=== PATIENT | female | born 1970 | race Caucasian/White ===

== ENCOUNTER → 2023-04-07 07:17 | Outpatient (CLI) | payer OTHER, SELFPAY ==
--- NOTE | 2023-04-07 | DI.MG.S_ITS ---
BILATERAL DIGITAL SCREENING MAMMOGRAM 3D/2D WITH CAD: 04/07/2023 CLINICAL: Routine screening. Comparison is made to exams dated: 02/25/2022 mammogram, 12/16/2019 mammogram, and 03/21/2017 mammogram - Outside facility. There are scattered areas of fibroglandular density in both breasts (category b / 25%-50% glandular tissue). Current study was also evaluated with a Computer Aided Detection (CAD) system. No significant masses, calcifications, or other findings are seen in either breast. There has been no significant interval change. IMPRESSION: NEGATIVE There is no mammographic evidence of malignancy. A 1 year screening mammogram is recommended. Based on the Tyrer Cuzick model (a risk assessment model) the patient's lifetime risk is 8.1% and her 10 year risk is 2.1%. According to the ACR, ACS, and NCCN guidelines, an annual breast MRI exam along with mammogram is recommended if the patient's lifetime risk is 20% or greater. This exam was interpreted at Station ID: [id number]. NOTE: For mammograms, a report in lay terms will be sent to the patient. Approximately 15% of breast malignancies will not be visualized mammographically. In the management of a palpable breast mass, a negative mammogram must not discourage biopsy of a clinically suspicious lesion. Electronically Signed By: Zhou roberson/aníbal:04/07/2023 08:25:30 letter sent: Normal Exam ACR BI-RADS Category 1: Negative [id number]
== END ==
PROVIDERS: PCP Family Medicine; Referring Provider Family Medicine; Visit Provider Family Medicine
DX: Z12.31 Encounter for screening mammogram for malignant neoplasm of breast (principal)
CPT/HCPCS: 77063; 77067

== ENCOUNTER → 2023-04-14 07:14 | Outpatient (CLI) | payer OTHER, SELFPAY ==
[2023-04-14 08:31] LABS: Add Manual Diff / Slide Review NO; Basophils Absolute Auto 100 /uL (0-100); Basophils Percent Auto 0.9 % (0-2); Eosinophils Absolute Auto 200 /uL (0-450); Eosinophils Percent Auto 2.3 % (2-4); Hematocrit 41.4 % (36-46); Hemoglobin 13.9 g/dL (12.0-16.0); Lymphocytes Absolute Auto 2000 /uL (1100-4500); Lymphocytes Percent Auto 23.3 % (25-40); Mean Corpuscular HGB Conc 33.5 % (30-36); Mean Corpuscular Hemoglobin 29.4 PG (26-34); Mean Corpuscular Volume 87.8 fL (80-100); Monocytes Absolute Auto 600 /uL (0-900); Monocytes Percent Auto 6.6 % (3-14); Neutrophils Absolute Auto 5700 /uL (1500-7000); Neutrophils Percent Auto 66.9 % (50-75); Platelet Count 288 X10^3/uL (150-400); Red Blood Cell Count 4.72 X10^6/uL (4.0-5.2); Red Cell Distribution Width 13.7 % (11.6-14.8); White Blood Cell Count 8.5 X10^3/uL (4.5-11.0)
[2023-04-14 08:42] LABS: Alanine Aminotransferase 13 IU/L (<35); Albumin 3.8 g/dL (3.5-5.0); Albumin Globulin Ratio 1.2 (1.0-2.8); Alkaline Phosphatase 82 U/L (38-126); Aspartate Aminotransferase 19 IU/L (14-36); BUN Creatinine Ratio 15.2 (6-22); Bilirubin Total 0.3 mg/dL (0.2-1.3); Blood Urea Nitrogen 12 mg/dL (7-17); Calcium 9.8 mg/dL (8.4-10.2); Carbon Dioxide 25 mmol/L (22-32); Chloride 104 mmol/L (98-107); Cholesterol 238 mg/dL (140-199); Estimated Glomerular Filt Rate > 60 mL/min (>60); Globulin 3.1 g/dL (1.7-4.1); Glucose 90 mg/dL (70-100); HDL Cholesterol 66 mg/dL (40-60); HEMOLYSIS < 15 (0-50); LDL Cholesterol Calculated 151 mg/dL (<100); Potassium 4.6 mmol/L (3.4-5.1); Sodium 137 mmol/L (137-145); Total Protein 6.9 g/dL (6.3-8.2); Triglycerides 107 mg/dL (35-150); VLDL Cholesterol Calculated 21 mg/dL (2-30)
[2023-04-14 09:10] LABS: TSH w/ Reflex to FT4 1.73 uIU/mL (0.47-4.68)
[2023-04-15 04:32] LABS: Hemoglobin A1C% w Est Avg Glu 5.7 % (4.0-6.0)
== END ==
PROVIDERS: PCP Family Medicine; Referring Provider Family Medicine; Visit Provider Family Medicine
DX: Z00.00 Encounter for general adult medical examination without abnormal findings (principal)
CPT/HCPCS: 36415; 80053; 80061; 83036; 84443; 85025

== ENCOUNTER → 2023-10-30 13:48 | Outpatient (CLI) | payer OTHER, SELFPAY | PROVIDERS: PCP Family Medicine; Visit Provider Physician Assistant Surgical | DX: M54.50 Low back pain, unspecified (principal) | CPT/HCPCS: 87086 ==

== ENCOUNTER 2023-10-30 14:29 | Emergency (ER) | payer OTHER, SELFPAY ==
[2023-10-30 14:31] VITALS: BP 141/76; PULSE 62; RESP 18; TEMP 36.6; O2SAT 100; BMI 32.1
--- NOTE | 2023-10-30 14:42 | DI.CT.S_ITS ---
PROCEDURE: CT KIDNEY URETER BLADDER (KUB) INDICATIONS: abd pain TECHNIQUE: Axial sections were acquired from the lung bases to the pubic symphysis. Coronal and sagittal reformats were performed. For radiation dose reduction, the following was used: automated exposure control, adjustment of mA and/or kV according to patient size. COMPARISON: None. FINDINGS: Image quality: Diagnostic Lower chest: Unremarkable Liver: Solid organs are not well evaluated without IV contrast. No contour deforming mass Gallbladder and biliary system: Unremarkable, nondilated Pancreas: No ductal dilation Spleen: Nonenlarged Adrenals: No discrete nodules Kidneys: Possible small cysts. No contour deforming solid mass. No hydronephrosis. Pelvic calcifications are probably phleboliths adjacent to the distal ureters. There is no upstream dilation. Vessels and lymph nodes: No abdominal aortic aneurysm. No pathologic lymph nodes by size criteria. Bowel and peritoneum: Mild nonspecific distal esophageal wall thickening. No evidence of small bowel obstruction. No pathologic ascites. The appendix is nondilated Body wall: Small fat containing umbilical hernia Pelvis: Bladder is under distended. No radiopaque stones are identified. The reproductive organs are unremarkable on limited CT evaluation Bones: No acute or suspicious osseous findings. There are degenerative changes. IMPRESSION: No obstructing calcified stone. No hydronephrosis. Numerous pelvic calcifications are present, adjacent to the distal ureters, favored to represent phleboliths. There are no signs of upstream ureter dilation. Other findings as above on this noncontrast CT. Dictated by: Mu Rosas M.D. on 10/30/2023 at 16:19 Approved by: Mu Rosas M.D. on 10/30/2023 at 16:23
[2023-10-30 15:01] LABS: Add Manual Diff / Slide Review NO; Basophils Absolute Auto 100 /uL (0-100); Basophils Percent Auto 0.9 % (0-2); Eosinophils Absolute Auto 500 /uL (0-450); Eosinophils Percent Auto 6.1 % (2-4); Hemoglobin 12.9 g/dL (12.0-16.0); Lymphocytes Absolute Auto 2200 /uL (1100-4500); Lymphocytes Percent Auto 28.8 % (25-40); Mean Corpuscular HGB Conc 32.4 % (30-36); Mean Corpuscular Volume 89.5 fL (80-100); Monocytes Absolute Auto 700 /uL (0-900); Monocytes Percent Auto 8.8 % (3-14); Neutrophils Absolute Auto 4300 /uL (1500-7000); Neutrophils Percent Auto 55.4 % (50-75); Platelet Count 290 X10^3/uL (150-400); Red Blood Cell Count 4.47 X10^6/uL (4.0-5.2); White Blood Cell Count 7.7 X10^3/uL (4.5-11.0)
[2023-10-30] MEDS: KETOROLAC 30 MG/ML VIAL 15 MG IV (15:05)
[2023-10-30 15:12] LABS: Alanine Aminotransferase 23 IU/L (<35); Albumin 4.3 g/dL (3.5-5.0); Albumin Globulin Ratio 1.3 (1.0-2.8); Alkaline Phosphatase 136 U/L (38-126); Aspartate Aminotransferase 29 IU/L (14-36); BUN Creatinine Ratio 15.9 (6-22); Bilirubin Total 0.4 mg/dL (0.2-1.3); Blood Urea Nitrogen 11 mg/dL (7-17); Calcium 8.8 mg/dL (8.4-10.2); Carbon Dioxide 28 mmol/L (22-32); Chloride 104 mmol/L (98-107); Estimated Glomerular Filt Rate > 60 mL/min (>60); Globulin 3.2 g/dL (1.7-4.1); Glucose 86 mg/dL (70-100); HEMOLYSIS < 15 (0-50); Lipase 63 U/L (23-300); Potassium 3.8 mmol/L (3.4-5.1); Sodium 139 mmol/L (137-145); Total Protein 7.5 g/dL (6.3-8.2)
[2023-10-30 16:38] VITALS: BP 128/74; PULSE 67; RESP 16; TEMP 36.5; O2SAT 100
--- NOTE | 2023-10-30 17:27 | PC.NURSE ---
Right flank pain unrelieved with acetaminophen, ibuprofen, or exedrin.
--- NOTE | 2023-10-30 18:01 | ED_ITS ---
HPI - Back Pain/Injury General Chief Complaint: Back Pain/Injury Stated Complaint: lowback pain, sent by [facility] Time Seen by Provider: 10/30/23 17:29 Source: patient History of Present Illness HPI Narrative: Patient is a 53-year-old female who presents today from the walk-in clinic with right low pain. Symptoms started acutely last night. She denies any sort of injury. It does not radiate around to her abdomen or down her leg. No significant right upper quadrant pain nausea or vomiting. No painful frequent urination. She was given Toradol here in the ED which did help a little bit. She reports that she is on her menstrual cycle her urine is noted to have some hematuria. Pain is reproducible with palpation but not always. Related Data Home Medications Medication Instructions Recorded Confirmed albuterol sulfate 1.25 mg/3 mL mg inhalation 06/19/23 10/30/23 solution for nebulization albuterol sulfate 90 mcg/actuation inhalation 06/19/23 10/30/23 aerosol inhaler amitriptyline 10 mg tablet mg PO 06/19/23 10/30/23 gxdrjgzbvq-cucozqfascqlc-ixbtwmey tab PO 06/19/23 10/30/23 50 mg-325 mg-40 mg tablet fluoxetine 10 mg capsule 10 mg PO DAILY 06/19/23 10/30/23 fluticasone propionate 220 2 puff inhalation BID 06/19/23 10/30/23 mcg/actuation HFA aerosol inhaler (Flovent HFA) ketorolac 10 mg tablet 10 mg PO Q6H PRN 06/19/23 10/30/23 norethindrone 1 mg-ethinyl 1 tab PO DAILY 06/19/23 10/30/23 estradiol 20 mcg (24)-iron 75 mg (4) tablet (Kieran 24 Fe) Previous Rx's Medication Instructions Recorded methocarbamol 750 mg tablet 1,500 mg (2 x 750 mg) PO Q12HR #20 10/30/23 tabs Allergies Allergy/AdvReac Type Severity Reaction Status Date / Time Sulfa (Sulfonamide Allergy Mild Hives Verified 10/30/23 13:37 Antibiotics) Patient History Social History Smoking Status: Never smoker Smoking Status: Never smoker alcohol intake frequency: holidays/special occasions only Substance Use Type: does not use Exam Initial Vital Signs Initial Vital Signs: Vital Signs Temperature 98 F 10/30/23 14:31 Pulse Rate 62 10/30/23 14:31 Respiratory Rate 18 10/30/23 14:31 Blood Pressure 141/76 H 10/30/23 14:31 Pulse Oximetry 100 10/30/23 14:31 Oxygen Delivery Method Room Air 10/30/23 14:31 GENERAL: Alert pleasant well-appearing 53-year-old female and in no acute distress. HEENT: Head atraumatic,EOMI, pupils reactive, face symmetric, moist mucous membranes CARDIOVASCULAR: Regular rate and rhythm without murmurs, rubs or gallops. RESPIRATORY: Breath sounds equal bilaterally, no wheezes rales or rhonchi. ABDOMEN: Soft, nontender no significant right lower quadrant pain no guarding no rebound no right upper quadrant pain negative Granger sign BACK: No vertebral tenderness no step-offs she is mildly tender in her right lower lumbar area not significantly tender in her gluteus your her iliac crest. : No CVA tenderness EXTREMITIES: Normal range of motion, no clubbing or edema. Neurovascularly intact NEUROLOGICAL: Alert and oriented x4.Normal gait and speech. SKIN: Warm, dry, no laceration, no petechiae, no rashes or lesions. Course Orders Ordered: Discontinued Medications Ketorolac Tromethamine (Ketorolac 30 Mg/Ml Vial) 15 mg IV NOW ONE Stop: 10/30/23 14:43 Last Admin: 10/30/23 15:05 Dose: 15 mg Documented By: LINDA Ondansetron HCl (Ondansetron 4 Mg/2 Ml Inj) 4 mg IV NOW PRN PRN Reason: Nausea And Vomiting Vital Signs Vital signs: Vital Signs - 8 hr 10/30/23 14:31 10/30/23 16:38 Temperature 98 F 97.7 F Pulse Rate 62 67 Respiratory Rate 18 16 Blood Pressure 141/76 H 128/74 Pulse Oximetry 100 100 Oxygen Delivery Method Room Air Room Air MDM - Back Pain/Injury Lab Data 10/30/23 14:55 10/30/23 14:55 Labs: Lab Results 10/30/23 Range/Units 14:55 WBC 7.7 (4.5-11.0) X10^3/uL RBC 4.47 (4.0-5.2) X10^6/uL Hgb 12.9 (12.0-16.0) g/dL Hct 40.0 (36-46) % MCV 89.5 (80-100) fL MCH 29.0 (26-34) PG MCHC 32.4 (30-36) % RDW 14.0 (11.6-14.8) % Plt Count 290 (150-400) X10^3/uL Neut % (Auto) 55.4 (50-75) % Lymph % (Auto) 28.8 (25-40) % Gila % (Auto) 8.8 (3-14) % Eos % (Auto) 6.1 H (2-4) % Baso % (Auto) 0.9 (0-2) % Neut # (Auto) 4300 (7204-4136) /uL Lymph # (Auto) 2200 (0618-5190) /uL Gila # (Auto) 700 (0-900) /uL Eos # (Auto) 500 H (0-450) /uL Baso # (Auto) 100 (0-100) /uL Sodium 139 (137-145) mmol/L Potassium 3.8 (3.4-5.1) mmol/L Chloride 104 (98-107) mmol/L Carbon Dioxide 28 (22-32) mmol/L BUN 11 (7-17) mg/dL Creatinine 0.69 (0.52-1.04) mg/dL Estimated GFR > 60 (>60) mL/min BUN/Creatinine Ratio 15.9 (6-22) Glucose 86 (70-100) mg/dL Calcium 8.8 (8.4-10.2) mg/dL Total Bilirubin 0.4 (0.2-1.3) mg/dL AST 29 (14-36) IU/L ALT 23 (<35) IU/L Alkaline Phosphatase 136 H (38-126) U/L Total Protein 7.5 (6.3-8.2) g/dL Albumin 4.3 (3.5-5.0) g/dL Globulin 3.2 (1.7-4.1) g/dL Albumin/Globulin Ratio 1.3 (1.0-2.8) Lipase 63 (23-300) U/L Imaging Data CT scan - abdomen/pelvis: Radiologist's Impression: PROCEDURE: CT KIDNEY URETER BLADDER (KUB) INDICATIONS: abd pain TECHNIQUE: Axial sections were acquired from the lung bases to the pubic symphysis. Coronal and sagittal reformats were performed. For radiation dose reduction, the following was used: automated exposure control, adjustment of mA and/or kV according to patient size. COMPARISON: None. FINDINGS: Image quality: Diagnostic Lower chest: Unremarkable Liver: Solid organs are not well evaluated without IV contrast. No contour deforming mass Gallbladder and biliary system: Unremarkable, nondilated Pancreas: No ductal dilation Spleen: Nonenlarged Adrenals: No discrete nodules Kidneys: Possible small cysts. No contour deforming solid mass. No hydronephrosis. Pelvic calcifications are probably phleboliths adjacent to the distal ureters. There is no upstream dilation. Vessels and lymph nodes: No abdominal aortic aneurysm. No pathologic lymph nodes by size criteria. Bowel and peritoneum: Mild nonspecific distal esophageal wall thickening. No evidence of small bowel obstruction. No pathologic ascites. The appendix is nondilated Body wall: Small fat containing umbilical hernia Pelvis: Bladder is under distended. No radiopaque stones are identified. The reproductive organs are unremarkable on limited CT evaluation Bones: No acute or suspicious osseous findings. There are degenerative changes. IMPRESSION: No obstructing calcified stone. No hydronephrosis. Numerous pelvic calcifications are present, adjacent to the distal ureters, favored to represent phleboliths. There are no signs of upstream ureter dilation. Other findings as above on this noncontrast CT. Dictated by: Mu Rosas M.D. on 10/30/2023 at 16:19 MDM Narrative Medical decision making narrative: Patient 53-year-old female day with right-sided lower lumbar back pain. No significant radiation to the abdomen or down the leg. Sometimes reproducible with pain and movement. Blood work has been reviewed no leukocytosis he WBCs 7.7, no anemia hemoglobin 0.9 hematocrit 40, platelets are 290, sodium 139, potassium 3.8, chloride 104, BUN 11, creatinine 0.69, glucose 86, bilirubin 0.4, AST 29, ALT 23, alk-phos 136 CT KUB does not show any sort of nephrolithiasis hydronephrosis or acute appendicitis At this time I suspect the patient's back pain is musculoskeletal. She does have some hematuria however no evidence of UTI or pyelonephritis. It suspect hematuria secondary to menstrual cycle. She really has no right upper quadrant pain nausea vomiting or symptoms consistent with acute cholelithiasis or acute cholecystitis. Also bilirubin and liver enzymes are within normal limits. CT does not show evidence of acute appendicitis or nephrolithiasis. She also has no evidence of sepsis without leukocytosis. Vitals are stable. Patient received Toradol and Zofran here in the ED which did seem to help but now seems to be coming back. We discussed pain management home and return as needed. Discharge Plan Departure Patient Disposition: Home Clinical Impression: Strain of lumbar region Instructions: DI for Back Spasm Activity Restrictions/Additional Instructions: *You have been diagnosed with back pain *What to do: At this time recommend heat, increase activity light stretches I suspect this is musculoskeletal no evidence of infection at this time. *Continue to take medications as directed Ibuprofen 600 mg every 6 hours for dfwh-eh-vcsadgfz pain Tylenol 1000 mg every 6 hours for fowi-wi-kfqwmhae pain Methocarbamol 750-1500 mg every 12 hours for muscle spasm *Follow up with your primary care provider in 2-3 days or call [phone] *Return to ER if you should have increasing pain, weakness numbness tingling persistent vomiting [or] any new, worsening or concerning symptoms Prescriptions: New methocarbamol 750 mg tablet 1,500 mg PO Q12HR Qty: 20 0RF No Action fluoxetine 10 mg capsule 10 mg PO DAILY amitriptyline 10 mg tablet PO Kieran 24 Fe 1 mg-20 mcg (24)/75 mg (4) tablet 1 tab PO DAILY albuterol sulfate 90 mcg/actuation HFA aerosol inhaler inhalation fluticasone propionate [Flovent HFA] 220 mcg/actuation HFA aerosol inhaler 2 puff inhalation BID albuterol sulfate 1.25 mg/3 mL solution for nebulization inhalation cnrpblsbvl-gnwxexjuohzbi-lybt 50-325-40 mg tablet PO ketorolac 10 mg tablet 10 mg PO Q6H PRN Referrals: Yesi Hernandez DO [Primary Care Provider] - Stand Alone Forms: Patient Portal/API
[2023-10-30 18:29] VITALS: BP 118/70; PULSE 64; RESP 19; TEMP 36.3; O2SAT 100
== END 2023-10-30 18:30 | disposition home or self-care (01) ==
PROVIDERS: Emergency Provider Emergency Medicine; PCP Family Medicine
DX: S39.012A Strain of muscle, fascia and tendon of lower back, initial encounter (principal); X58.XXXA Exposure to other specified factors, initial encounter
CPT/HCPCS: 36415; 74176; 80053; 83690; 85025; 87086; 96374; 99284; J1885

== ENCOUNTER → 2024-02-06 09:05 | Outpatient (CLI) | payer OTHER, SELFPAY ==
[2024-02-06 09:59] LABS: Add Manual Diff / Slide Review NO; Basophils Absolute Auto 0 /uL (0-100); Basophils Percent Auto 0.6 % (0-2); Eosinophils Absolute Auto 400 /uL (0-450); Eosinophils Percent Auto 6.8 % (2-4); Hematocrit 40.3 % (36-46); Hemoglobin 13.2 g/dL (12.0-16.0); Lymphocytes Absolute Auto 1800 /uL (1100-4500); Lymphocytes Percent Auto 27.5 % (25-40); Mean Corpuscular HGB Conc 32.7 % (30-36); Mean Corpuscular Hemoglobin 29.1 PG (26-34); Mean Corpuscular Volume 89.1 fL (80-100); Monocytes Absolute Auto 500 /uL (0-900); Neutrophils Absolute Auto 3700 /uL (1500-7000); Neutrophils Percent Auto 57.1 % (50-75); Platelet Count 295 X10^3/uL (150-400); Red Blood Cell Count 4.52 X10^6/uL (4.0-5.2); Red Cell Distribution Width 13.6 % (11.6-14.8); White Blood Cell Count 6.4 X10^3/uL (4.5-11.0)
[2024-02-06 10:17] LABS: Hemoglobin A1C% w Est Avg Glu 5.5 % (4.0-6.0)
[2024-02-06 10:59] LABS: Alanine Aminotransferase 22 IU/L (<35); Albumin Globulin Ratio 1.5 (1.0-2.8); Alkaline Phosphatase 120 U/L (38-126); Aspartate Aminotransferase 27 IU/L (14-36); Bilirubin Total 0.5 mg/dL (0.2-1.3); Blood Urea Nitrogen 12 mg/dL (7-17); Calcium 9.5 mg/dL (8.4-10.2); Carbon Dioxide 28 mmol/L (22-32); Chloride 103 mmol/L (98-107); Cholesterol 227 mg/dL (140-199); Estimated Glomerular Filt Rate > 60 mL/min (>60); Globulin 2.7 g/dL (1.7-4.1); Glucose 90 mg/dL (70-100); HDL Cholesterol 68 mg/dL (40-60); HEMOLYSIS < 15 (0-50); LDL Cholesterol Calculated 136 mg/dL (<100); Potassium 4.7 mmol/L (3.4-5.1); Sodium 137 mmol/L (137-145); Total Protein 6.7 g/dL (6.3-8.2); Triglycerides 116 mg/dL (35-150)
== END ==
PROVIDERS: PCP Family Medicine; Referring Provider Family Medicine; Visit Provider Family Medicine
DX: Z13.6 Encounter for screening for cardiovascular disorders (principal); R73.03 Prediabetes; F32.9 Major depressive disorder, single episode, unspecified
CPT/HCPCS: 36415; 80053; 80061; 83036; 85025

== ENCOUNTER → 2024-04-14 16:51 | Outpatient (CLI) | payer OTHER, SELFPAY ==
--- NOTE | 2024-04-14 16:52 | DI.MG.S_ITS ---
BILATERAL DIGITAL SCREENING MAMMOGRAM 3D/2D WITH CAD: 04/14/2024 CLINICAL: Routine screening. Comparison is made to exams dated: 04/07/2023 mammogram - [facility], 02/25/2022 mammogram, and 12/16/2019 mammogram - Outside facility. There are scattered areas of fibroglandular density (category b / 25%-50% glandular tissue). Current study was also evaluated with a Computer Aided Detection (CAD) system. No significant masses, calcifications, or other findings are seen in either breast. There has been no significant interval change. IMPRESSION: NEGATIVE There is no mammographic evidence of malignancy. A 1 year screening mammogram is recommended. Based on the Tyrer Cuzick model (a risk assessment model) the patient's lifetime risk is 8.6% and her 10 year risk is 2.3%. According to the ACR, ACS, and NCCN guidelines, an annual breast MRI exam along with mammogram is recommended if the patient's lifetime risk is 20% or greater. This exam was interpreted at Station ID: [id number]. NOTE: For mammograms, a report in lay terms will be sent to the patient. Approximately 15% of breast malignancies will not be visualized mammographically. In the management of a palpable breast mass, a negative mammogram must not discourage biopsy of a clinically suspicious lesion. Electronically Signed By: Nidhi Marcus M.D., Ph.D. betzaida/aníbal:04/15/2024 08:29:33 letter sent: Normal Exam ACR BI-RADS Category 1: Negative
== END ==
PROVIDERS: PCP Family Medicine; Referring Provider Family Medicine; Visit Provider Family Medicine
DX: Z12.31 Encounter for screening mammogram for malignant neoplasm of breast (principal)
CPT/HCPCS: 77063; 77067

== ENCOUNTER → 2024-08-10 16:26 | Outpatient (CLI) | payer OTHER, SELFPAY ==
--- NOTE | 2024-08-10 16:27 | DI.RAD.S_ITS ---
PROCEDURE: XR FOOT RT 2V INDICATIONS: Mass of right foot, anterior TECHNIQUE: 2 views of the foot were acquired. COMPARISON: None. FINDINGS: Bones: No fractures or dislocations. No suspicious bony lesions. Soft tissues: No tibiotalar joint effusion. Achilles tendon appears normal. IMPRESSION: No acute bony abnormality. Dictated by: Nick Armenta M.D. on 08/12/2024 at 3:12 Approved by: Nick Armenta M.D. on 08/12/2024 at 3:12
== END ==
LOC: RAD 16:27
PROVIDERS: PCP Family Medicine; Referring Provider Family Medicine; Visit Provider Family Medicine
DX: R22.41 Localized swelling, mass and lump, right lower limb (principal)
CPT/HCPCS: 73620

== ENCOUNTER → 2025-04-02 10:00 | Outpatient (CLI) | payer OTHER, SELFPAY ==
[2025-04-02 10:56] LABS: Add Manual Diff / Slide Review NO; Hematocrit 38.0 % (36-46); Hemoglobin 12.5 g/dL (12.0-16.0); Lymphocytes Absolute Auto 1700 /uL (1100-4500); Mean Corpuscular HGB Conc 33.0 % (30-36); Mean Corpuscular Hemoglobin 28.3 PG (26-34); Mean Corpuscular Volume 85.9 fL (80-100); Platelet Count 288 X10^3/uL (150-400)
[2025-04-02 11:02] LABS: Hemoglobin A1C% w Est Avg Glu 5.6 % (4.0-6.0)
[2025-04-02 11:33] LABS: Alanine Aminotransferase 35 IU/L (<35); Albumin 3.9 g/dL (3.5-5.0); Albumin Globulin Ratio 1.2 (1.0-2.8); Alkaline Phosphatase 140 U/L (38-126); Blood Urea Nitrogen 11 mg/dL (7-17); Calcium 9.3 mg/dL (8.4-10.2); Carbon Dioxide 30 mmol/L (22-32); Chloride 102 mmol/L (98-107); Cholesterol 207 mg/dL (140-199); Estimated Glomerular Filt Rate > 60 mL/min (>60); Globulin 3.2 g/dL (1.7-4.1); Glucose 87 mg/dL (70-99); HDL Cholesterol 92 mg/dL (40-60); HEMOLYSIS < 15 (0-50); Potassium 4.6 mmol/L (3.4-5.1); Sodium 136 mmol/L (137-145); Total Protein 7.1 g/dL (6.3-8.2); Triglycerides 75 mg/dL (35-150)
[2025-04-02 12:01] LABS: TSH w/ Reflex to FT4 2.37 uIU/mL (0.47-4.68)
== END ==
PROVIDERS: PCP Family Medicine; Referring Provider Family Medicine; Visit Provider Family Medicine
DX: R73.03 Prediabetes (principal); T78.40XS Allergy, unspecified, sequela; L65.9 Nonscarring hair loss, unspecified; R63.5 Abnormal weight gain
CPT/HCPCS: 36415; 80053; 80061; 83036; 84443; 85025

== ENCOUNTER → 2025-04-27 07:47 | Outpatient (CLI) | payer OTHER, SELFPAY ==
--- NOTE | 2025-04-27 07:49 | DI.MG.S_ITS ---
MM screening mammo BI: 04/27/2025. BI-RADS: 1 CLINICAL: 54-year old female for bilateral screening mammogram. Tyrer-Cuzick lifetime risk of 8.7%. No personal or first-degree family history of breast cancer. PRIOR EXAMS 04/14/2024, 04/07/2023, 12/16/2019, 03/21/2017. MAMMOGRAPHY TECHNIQUE: 2D and 3D (tomosynthesis) digital mammographic views obtained, with additional images as needed for full coverage. Current study was also evaluated with a Computer Aided Detection (CAD) system. DENSITY B. There are scattered areas of fibroglandular density. MAMMOGRAPHY FINDINGS Bilateral: No suspicious mass, asymmetry, microcalcification, or other abnormality seen. IMPRESSION: * No evidence of malignancy. RECOMMENDATIONS Bilateral * Annual screening mammography. OVERALL ASSESSMENT CATEGORY BI-RADS-1: Negative. The [employer] recommends annual screening mammography beginning at age 40 for women with average risk of breast cancer. ELECTRONICALLY SIGNED: Ailyn Gamble M.D. on 04/27/2025 at 04:45:41 PM PT Interpreting Station ID: [id number]
== END ==
LOC: MAMMO 07:49
PROVIDERS: PCP Family Medicine; Referring Provider Family Medicine; Visit Provider Family Medicine
DX: Z12.31 Encounter for screening mammogram for malignant neoplasm of breast (principal)
CPT/HCPCS: 77063; 77067